=== PATIENT | male | born 1955 | race Caucasian/White ===

== ENCOUNTER 2017-07-09 13:51 | Inpatient (IN) | payer MEDICAID ==
[~2017-07-09] VITALS: Ht 175.3 cm; Wt 58.5 kg
[2017-07-09 14:01] VITALS: BP 111/71
[2017-07-09 14:39] LABS: BASOPHILS # (AUTO) 0.4 K/uL (0.00-0.22); EOSINOPHILS # (AUTO) 0.1 K/uL (0-0.4); HEMATOCRIT 48.9 % (36-52); HEMOGLOBIN 16.6 g/dL (12.0-18.0); LYMPHOCYTES # (AUTO) 2.3 K/uL (2.0-11.5); MEAN CORPUSCULAR HEMOGLOBIN 34 pg (27-31); MEAN CORPUSCULAR HGB CONC 34 g/dL (33-37); MEAN CORPUSCULAR VOLUME 100 fL (80-94); MONOCYTES # (AUTO) 0.5 K/uL (0.8-1.0); NEUTROPHILS # (AUTO) 2.8 K/uL (1.8-7.7); PLATELET COUNT (AUTO) 245 K/uL (140-450); RED BLOOD CELL COUNT(AUTO) 4.91 MIL/uL (4.20-6.10); RED CELL DISTRIBUTION WIDTH 12.2 % (11.6-13.7); WHITE BLOOD COUNT (AUTO) 6.1 K/uL (4.8-10.8)
--- NOTE | 2017-07-09 14:41 | NUR ---
patient is a 61 yo male bib ems from field for etoh awake and alert on arrival, to bed 12 for md spencer.
[2017-07-09 15:05] LABS: ALBUMIN 3.6 g/dL (3.4-5.0); ANION GAP 12.9 (8-16); CARBON DIOXIDE 29.7 mmol/L (21-32); CREATININE 1.1 mg/dL (0.7-1.3); TOTAL BILIRUBIN 0.6 mg/dL (0.0-1.0)
[2017-07-09 15:12] LABS: POTASSIUM 2.6 mmol/L (3.5-5.1)
[2017-07-09] MEDS ORDERED: NACL 0.9% 1,000 ML IV ONE (15:35)
[2017-07-09] MEDS ORDERED: KCL 20 MEQ/WATER INJ PREMIX 100 ML IV ONE (15:35)
[2017-07-09] MEDS ORDERED: MAG SULF 2000 MG/WATER PREMIX 50 ML IV ONE ×2 (15:35→16:00)
[2017-07-09] MEDS ORDERED: HYDROcodone/APAP 7.5/325 MG 1 TAB PO PRN (17:10)
[2017-07-09] MEDS ORDERED: LORazepam 1 MG TAB PO PRN (17:10)
[2017-07-09] MEDS ORDERED: ONDANSETRON 4 MG/2 ML VIAL IVP PRN (17:10)
[2017-07-09] MEDS ORDERED: ACETAMINOPHEN 325 MG TAB PO PRN (17:10)
[2017-07-09] MEDS ORDERED: POTASSIUM CHLORIDE 20% 40 MEQ/15 ML UDC PO SCH (17:30)
[2017-07-09 17:54] LABS: PROTHROMBIN TIME 10.4 secs (10.8-13.4)
[2017-07-09 17:59] LABS: FREE T4 (FREE THYROXINE) 1.17 ng/dL (0.76-1.46); MAGNESIUM 2.1 mg/dL (1.8-2.4); PHOSPHORUS 3.6 mg/dL (2.5-4.9); THYROID STIMULATING HORMONE 1.93 uIU/mL (0.34-3.74)
[2017-07-09 18:00] VITALS: BP 142/100
[2017-07-09] MEDS ORDERED: POTASSIUM CHLORIDE 40 MEQ, LIDOCAINE 1% 25 MG in NACL 0.9% 250 ML IV SCH (18:00)
--- NOTE | 2017-07-09 18:00 | NUR ---
Pt transferred to Tele via [facility] ROOM 105-B
--- NOTE | 2017-07-09 18:00 | NUR ---
RECEIVED PT FROM ER. ASSISTED BY ER NURSE PER NAOMI. AWAKE. ALERT, ORIENTED X4. PT COOPERATIVE. NO SOB NOTED. DENIES ANY PAIN OR DISCOMFORT AT THIS TIME. PT AMBULATORY WITH STANDBY ASSIST. SKIN INTACT. SAFETY PRECAUTION IN PLACE. CALL LIGHT WITHIN REACH. HOOKED TO IVF. HOOKED TO TELE MONITOR.
[2017-07-09] MEDS: NACL 0.9% 1,000 ML IV SCH (18:08)
--- NOTE | 2017-07-09 19:01 | NUR ---
PT KEPT CLEAN, DRY AND COMFORTABLE, NEEDS ATTENDED WILL ENDORSE TO NEXT SHIFT, PT ON STABLE CONDITION FOR CONTINUITY OF CARE.
--- NOTE | 2017-07-09 19:05 | NUR ---
ADMITTED THIS 61 YEAR OLD MALE FROM ER PER NAOMI WITH CC OF SYNCOPE AND ETOH, SLEEPING, EASILY AROUSABLE, AAOX4, ASSESSMENT DONE, VITAL SIGNS STABLE, DENIES ANY PAIN, ORIENTED TO ROOM AND CALL LIGHT, K-RIDER INFUSING WELL AT THIS TIME, SAFETY MEASURES IN PLACE, CALL LIGHT WITHIN REACH.
[2017-07-09 20:00] VITALS: BP 115/75
[2017-07-09] MEDS: DOCUSATE SODIUM 100 MG GELCAP PO SCH (20:52)
[2017-07-09] MEDS: LORazepam 1 MG TAB PO SCH (20:53)
--- NOTE | 2017-07-09 21:00 | NUR ---
SANDWICH PROVIDED, CONSUMED 100%, DUE PO MEDS TAKEN, ALL NEEDS ATTENDED.
[2017-07-09 22:36] LABS: ANION GAP 14.2 (8-16); CARBON DIOXIDE 27.5 mmol/L (21-32); CREATININE 0.9 mg/dL (0.7-1.3); POTASSIUM 3.7 mmol/L (3.5-5.1)
--- NOTE | 2017-07-09 23:50 | NUR ---
PT VOIDED FREELY PER URINAL, URINE SENT TO LAB FOR TEST, VITAL SIGNS STABLE, DENIES ANY PAIN, NO SIGNS OF WITHDRAWAL SYMPTOMS, IVF INFUSING WELL, CONTINUE TO MONITOR CLOSELY.
[2017-07-10] VITALS: BP 121/75
[2017-07-10 00:24] LABS: APPEARANCE,URINE CLEAR (CLEAR); BILIRUBIN,URINE NEGATIVE (NEGATIVE); BLOOD, URINE NEGATIVE (NEGATIVE); COLOR,URINE YELLOW (YELLOW); LEUKOCYTE ESTERASE ,URINE NEGATIVE (NEGATIVE); NITRITE, URINE NEGATIVE (NEGATIVE); UGLUCOSE NEGATIVE (NEGATIVE)
[2017-07-10 00:35] LABS: BARBITURATE, URINE NEG. ng/ml (NEG <=200); BENZODIAZEPINE, URINE NEG. ng/mL (NEG <=200); CANNABINOID, URINE NEG. ng/mL (NEG <=50); COCAINE, URINE POS. ng/mL (NEG <=300); OPIATE, URINE NEG. ng/mL (NEG <=2000); PHENCYCLIDINE SCREEN,URINE NEG. ng/mL (NEG <=25)
[2017-07-10 01:18] LABS: RBC,URINE 0-5 (RARE) /HPF (0-5); WBC,URINE 0-5 (RARE) /HPF (0-5)
--- NOTE | 2017-07-10 03:50 | NUR ---
PT SLEEPING, EASILY AROUSABLE, VITAL SIGNS STABLE, DENIES ANY PAIN, IVF INFUSING WELL, MONITORED CLOSELY.
[2017-07-10 04:00] VITALS: BP 118/78
[2017-07-10] MEDS ORDERED: LACTULOSE 20 GM/30 ML UDC PO SCH ×2 (04:40→15:20)
[2017-07-10] MEDS ORDERED: LORazepam 1 MG TAB PO SCH (05:00)
[2017-07-10] MEDS: LORazepam 1 MG TAB PO SCH ×2 (05:04→12:37)
--- NOTE | 2017-07-10 05:07 | NUR ---
PT SLEEPING, EASILY AROUSABLE, DUE ATIVAN PO AND LACTULOSE X1 DOSE FOR ELEVATED AMMONIA GIVEN WITH EDUCATION PROVIDED, MADE AWARE FOR CT HEAD OF HEAD TODAY TO R/O CVA, VERBALIZED UNDERSTANDING, NO WITHDRAWAL SYMPTOMS NOTED, MONITORED CLOSELY.
--- NOTE | 2017-07-10 05:50 | NUR ---
PT TAKEN TO CT DEPT VIA WHEELCHAIR FOR CT OF HEAD.
--- NOTE | 2017-07-10 06:08 | NUR ---
PT BACK FROM CT DEPT, HOOK BACK ON IVF, NO DISTRESS NOTED, MONITORED CLOSELY.
--- NOTE | 2017-07-10 07:15 | NUR ---
PT SLEEPING, EASILY AROUSABLE, NO SIGNS OF DISTRESS, REPORT GIVEN TO LOGAN CANDELARIA FOR CONTINUITY OF CARE.
--- NOTE | 2017-07-10 07:16 | NUR ---
RECEIVED REPORT FROM NIGHT RN, PT SLEEPING IN BED ON RA, A/OX4, NO S/S OF ACUTE DISTRESS, IV PATENT AND INTACT, SAFETY PRECAUTIONS TAKEN, SEIZURE PRECAUTIONS TAKEN, BED IN LOWEST POSITION, CALL LIGHT WITHIN REACH, WILL CONT TO SOFÍA.
[2017-07-10 07:38] LABS: BASOPHILS # (AUTO) 0.2 K/uL (0.00-0.22); BASOPHILS % (AUTO) 4.5 % (0.0-2.0); EOSINOPHILS # (AUTO) 0.2 K/uL (0-0.4); EOSINOPHILS % (AUTO) 3.4 % (0.0-4.0); HEMATOCRIT 44.3 % (36-52); HEMOGLOBIN 15.3 g/dL (12.0-18.0); LYMPHOCYTES # (AUTO) 1.7 K/uL (2.0-11.5); LYMPHOCYTES % (AUTO) 37.3 % (20.5-51.1); MEAN CORPUSCULAR HEMOGLOBIN 34 pg (27-31); MEAN CORPUSCULAR HGB CONC 35 g/dL (33-37); MEAN CORPUSCULAR VOLUME 99 fL (80-94); MONOCYTES # (AUTO) 0.6 K/uL (0.8-1.0); MONOCYTES % (AUTO) 13.1 % (1.7-9.3); NEUTROPHILS # (AUTO) 1.9 K/uL (1.8-7.7); NEUTROPHILS % (AUTO) 41.7 % (42.2-75.2); PLATELET COUNT (AUTO) 194 K/uL (140-450); RED BLOOD CELL COUNT(AUTO) 4.46 MIL/uL (4.20-6.10); RED CELL DISTRIBUTION WIDTH 12.5 % (11.6-13.7); WHITE BLOOD COUNT (AUTO) 4.6 K/uL (4.8-10.8)
[2017-07-10 08:00] VITALS: BP 120/80
[2017-07-10] MEDS: NACL 0.9% 1,000 ML IV SCH (08:13)
[2017-07-10] MEDS: DOCUSATE SODIUM 100 MG GELCAP PO SCH (08:34)
--- NOTE | 2017-07-10 08:36 | NUR ---
DUE MEDICATIONS GIVEN WITH EDUCATION, PT VERBALIZED UNDERSTANDING, PT TOLERATED MEDS WELL, WILL CONT TO MONITOR.
[2017-07-10 08:38] LABS: CHOL/HDL RATIO 2.3 (1-4.5); MAGNESIUM 2.1 mg/dL (1.8-2.4); PHOSPHORUS 2.5 mg/dL (2.5-4.9)
[2017-07-10 08:40] LABS: ANION GAP 9.6 (8-16); CARBON DIOXIDE 29.1 mmol/L (21-32); CREATININE 0.9 mg/dL (0.7-1.3); POTASSIUM 3.7 mmol/L (3.5-5.1)
[2017-07-10] MEDS ORDERED: FOLIC ACID 1 MG TAB PO SCH (09:00)
[2017-07-10] MEDS ORDERED: THIAMINE 100 MG TAB PO SCH (09:00)
[2017-07-10] MEDS ORDERED: MULTIVITAMIN 1 TAB PO SCH (09:00)
--- NOTE | 2017-07-10 09:17 | NUR ---
PATIENT HAS BEEN SCREENED AND CATEGORIZED LOW NUTRITION RISK. PATIENT WILL BE SEEN WITHIN 7 DAYS OF ADMISSION. 07/16/[address]
--- NOTE | 2017-07-10 11:28 | NUR ---
FAXED INITIAL REVIEW TO [facility] [phone] SAMIR FAXED INITIAL REVIEW TO [facility] [phone] PHONE [phone] TATI
--- NOTE | 2017-07-10 11:53 | NUR ---
1045 MET WITH PT AT BEDSIDE WITH DR YAN PRESENT. PER PT HE RODE THE TRAIN FROM [place] TO [place] TO VISIT A FRIEND. PT STATED THAT HE LIVES IN AN APARTMENT IN [place] AND GETS 800 AND SOME DOLLARS PER MONTH SSI. IS INDEPENDENT AND HAS A PCP THAT HE SEES IN [place], USES PUBLIC TRANSPORTATION, HAS NO DIFFICULTY GETTING HIS MEDICATIONS. STATED THAT HE HAS A TRAIN PASS THAT HE WILL UTILIZE TO GET BACK HOME TO [place].
--- NOTE | 2017-07-10 12:47 | NUR ---
PT SLEEPING IN BED ON RA, PT SHOWS NO S/S OF ACUTE DISTRESS, CALL LIGHT WITHIN REACH, WILL CONT TO MONITOR.
[2017-07-10 16:00] VITALS: BP 121/79
[2017-07-10 17:36] VITALS: BP 124/78
--- NOTE | 2017-07-10 18:10 | NUR ---
PT READY FOR DISCHARGE, PT IV TAKEN OUT TIP INTACT, PT DENIES PAIN, NO S/S OF ACUTE DISTRESS, PT AMBULATED TO LOBBY WITHOUT ASSISTANCE, PT IN STABLE CONDITION
== END 2017-07-10 18:13 | disposition home or self-care (01) | DRG 774 ==
LOC: MED 13:51 → EDBD 13:51 → MTU 16:56
PROVIDERS: ADMIT Family Medicine; ATTEND Family Medicine
DX: F10.229 Alcohol dependence with intoxication, unspecified (principal); F14.10 Cocaine abuse, uncomplicated; G92 Toxic encephalopathy; K72.90 Hepatic failure, unspecified without coma; I10 Essential (primary) hypertension; Y90.8 Blood alcohol level of 240 mg/100 ml or more; J45.909 Unspecified asthma, uncomplicated; E87.6 Hypokalemia; K21.9 Gastro-esophageal reflux disease without esophagitis; F41.9 Anxiety disorder, unspecified; F15.10 Other stimulant abuse, uncomplicated; F19.10 Other psychoactive substance abuse, uncomplicated; Z79.899 Other long term (current) drug therapy; Z82.5 Family history of asthma and other chronic lower respiratory diseases; Z83.3 Family history of diabetes mellitus; Z82.49 Family history of ischemic heart disease and other diseases of the circulatory system
CPT/HCPCS: 36415; 70450; 71010; 80048; 80053; 80305; 81001; 82140; 82150; 83036; 83690; 83735; 84100; 84439; 84443; 84484; 85025; 85610; 85730; 87081; 93005; 96361; 96365; 99285; G0482; J2001; J3475; J3480; J7030; Q0092